=== PATIENT | female | born 1980 | race African-American/Black ===

== ENCOUNTER 2020-07-24 07:02 | Emergency (ER) | payer OTHER ==
[~2020-07-24] VITALS: Ht 157.5 cm; Wt 176.4 kg
[~2020-07-24 07:02] MED LIST: AMOXICILLI250 MG/51 PO; CIPROFLOXACIN500 M1 PO; HYCET 7.5 MG-3473 ML PO; PERCOCET PO; PROTONIX40 M3
[2020-07-24 07:44] LABS: BASOPHILS 0.9 % (0.0-2.0); HEMATOCRIT 35.9 % (37.0-47.0); HEMOGLOBIN 11.5 gm/dL (12.0-15.0); LYMPHOCYTES 34.5 % (24.0-44.0); MCH 26.4 pg (26.0-34.0); MCHC 31.9 g/dL (28.0-37.0); MCV 82.5 fL (80.0-100.0); MONOCYTES 7.2 % (1.0-8.0); PLATELET COUNT 482 thou/uL (150-400); POLYS 56.4 % (36.0-66.0); RBC 4.35 mil/uL (4.20-5.00); RDW 14.5 % (10.5-14.5); WBC 8.9 thou/uL (4.0-11.0)
[2020-07-24 07:48] LABS: URINE BILIRUBIN NEGATIVE (Negative); URINE BLOOD 3+ (Negative); URINE GLUCOSE-RANDOM* NEGATIVE (Negative); URINE KETONES NEGATIVE (Negative); URINE LEUKOCYTES-REFLEX NEGATIVE (Negative); URINE NITRITE-REFLEX NEGATIVE (Negative); URINE PROTEIN (DIPSTICK) TRACE (Negative); URINE SPECIFIC GRAVITY <= 1.005 (1.005-1.035); URINE UROBILINOGEN 0.2 E.U./dl (0.2-1.0)
[2020-07-24 07:51] LABS: URINE CLARITY HAZY; URINE COLOR LT RED
[2020-07-24 07:54] LABS: ANION GAP 7 mmol/L (7-16); BUN 9 mg/dL (7-18); CALCIUM 9.3 mg/dL (8.5-10.1); CHLORIDE 102 mmol/L (98-107); CO2 29 mmol/L (21-32); CREATININE 0.9 mg/dL (0.6-1.0); GLUCOSE 140 mg/dL (74-106); POTASSIUM 3.8 mmol/L (3.5-5.1); SODIUM 138 mmol/L (136-145)
[2020-07-24 07:55] LABS: CASTS None Seen /LPF (None Seen); SQUAMOUS 4-10 Moderate /LPF (0-3)
[2020-07-24 07:56] LABS: BACTERIA-REFLEX 1-9 Few /HPF (None Seen); CRYSTALS None Seen /LPF (None Seen); URINE RBC >20 Many /HPF (0-2); URINE WBC-REFLEX 0-5 Rare /HPF (0-5)
[2020-07-24 08:00] LABS: ALBUMIN 3.7 g/dL (3.4-5.0); AMYLASE 48 U/L (25-115); DIRECT BILIRUBIN < 0.1 mg/dL (<0.1-0.2); LIPASE 76 U/L (73-393); SGOT 13 U/L (15-37); SGPT 30 U/L (30-65); TOTAL BILIRUBIN 0.3 mg/dL (0.2-1.0); TOTAL PROTEIN 8.4 g/dL (6.4-8.2)
[2020-07-24] MEDS ORDERED: PYRIDIUM200 MG PO (09:34)
[2020-07-24] MEDS ORDERED: KEFLEX500 M1 PO (09:34)
[2020-07-24] MEDS ORDERED: ANUSOL-HC30 GM TOP (09:34)
[2020-07-24] MEDS ORDERED: ANUSOL-HC25 MG RECTAL (09:34)
[2020-07-24 09:38] VITALS: BP 124/72
== END 2020-07-24 09:40 | disposition home or self-care (01) ==
LOC: ER 07:02
PROVIDERS: Emergency Medicine
DX: D25.9 Leiomyoma of uterus, unspecified (principal); N30.90 Cystitis, unspecified without hematuria; N93.8 Other specified abnormal uterine and vaginal bleeding; K64.9 Unspecified hemorrhoids; Z79.2 Long term (current) use of antibiotics; Z79.899 Other long term (current) drug therapy

== ENCOUNTER 2020-11-24 01:01 | Emergency (ER) | payer OTHER ==
[~2020-11-24] VITALS: Ht 154.9 cm; Wt 182.0 kg
[~2020-11-24 01:01] MED LIST changes: +ANUSOL-HC25 MG RECTAL; +ANUSOL-HC30 GM TOP; +KEFLEX500 M1 PO; +PYRIDIUM200 MG PO
[2020-11-24 03:00] LABS: ABSOLUTE NEUTROPHILS 5.7 thou/uL (1.4-8.2); BASOPHILS 0.6 % (0.0-2.0); EOSINOPHILS 0.2 % (0.0-3.0); HEMATOCRIT 35.6 % (37.0-47.0); HEMOGLOBIN 11.3 gm/dL (12.0-15.0); LYMPHOCYTES 29.8 % (24.0-44.0); MCH 25.2 pg (26.0-34.0); MCHC 31.9 g/dL (28.0-37.0); MCV 79.1 fL (80.0-100.0); PLATELET COUNT 476 thou/uL (150-400); POLYS 61.4 % (36.0-66.0); RDW 14.8 % (10.5-14.5); WBC 9.3 thou/uL (4.0-11.0)
[2020-11-24 03:11] LABS: ANION GAP 11 mmol/L (7-16); BUN 10 mg/dL (7-18); CALCIUM 9.3 mg/dL (8.5-10.1); CHLORIDE 100 mmol/L (98-107); CO2 24 mmol/L (21-32); CREATININE 0.8 mg/dL (0.6-1.0); GLUCOSE 109 mg/dL (74-106); SODIUM 135 mmol/L (136-145)
[2020-11-24 03:21] LABS: ALBUMIN 3.6 g/dL (3.4-5.0); LIPASE 57 U/L (73-393); SGOT 40 U/L (15-37); SGPT 27 U/L (14-59); TOTAL BILIRUBIN 0.5 mg/dL (0.2-1.0); TOTAL PROTEIN 8.7 g/dL (6.4-8.2); TROPONIN-I <0.06 ng/mL (<0.06)
[2020-11-24] MEDS ORDERED: CHLORTHALIDONE25 MG PO (04:11)
[2020-11-24] MEDS ORDERED: METOPROLOL SUC100 MG PO (04:11)
[2020-11-24] MEDS ORDERED: LOSARTAN POTAS100 MG PO ×2 (04:12→07:45)
--- NOTE | 2020-11-24 07:13 | EKG ---
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 : 1980 Requested By: Drew Muir Order Number: [id number] MD: Alireza Olson Measurements Intervals [place] Rate: 106 P: 39 MO: 192 QRS: -10 QRSD: 93 T: 192 QT: 308 QTc: 409 Interpretive Statements Sinus tachycardia Probable left atrial enlargement LVH with secondary repolarization abnormality No previous ECG available for comparison Electronically Signed On 11-24-2020 7:13:24 CDT by Alireza Olson [email or web address] <ELECTRONICALLY SIGNED> By: Alireza Olson MD, [facility] 11/24/20 0713 [id number] Alireza Olson MD, FACC /EPI
[2020-11-24] MEDS ORDERED: TOPROL XL100 MG PO (07:45)
[2020-11-24 07:52] VITALS: BP 167/93
== END 2020-11-24 07:53 | disposition still patient (30) ==
LOC: ER 01:01
PROVIDERS: Emergency Medicine
DX: R07.89 Other chest pain (principal); Z79.899 Other long term (current) drug therapy; Z98.51 Tubal ligation status

== ENCOUNTER 2021-02-01 23:48 | Emergency (ER) | payer OTHER ==
[~2021-02-01] VITALS: Ht 154.9 cm; Wt 172.4 kg
[~2021-02-01 23:48] MED LIST changes: +CHLORTHALIDONE25 MG PO; +LOSARTAN POTAS100 MG PO; +METOPROLOL SUC100 MG PO; +TOPROL XL100 MG PO
[2021-02-02 00:36] LABS: URINE BILIRUBIN NEGATIVE (Negative); URINE BLOOD TRACE (Negative); URINE CLARITY CLEAR; URINE COLOR YELLOW; URINE GLUCOSE-RANDOM* NEGATIVE (Negative); URINE KETONES NEGATIVE (Negative); URINE LEUKOCYTES-REFLEX NEGATIVE (Negative); URINE NITRITE-REFLEX NEGATIVE (Negative); URINE PROTEIN (DIPSTICK) NEGATIVE (Negative); URINE SPECIFIC GRAVITY 1.015 (1.005-1.035); URINE UROBILINOGEN 0.2 E.U./dl (0.2-1.0)
[2021-02-02 00:51] LABS: HEMATOCRIT 36.5 % (37.0-47.0); HEMOGLOBIN 11.6 gm/dL (12.0-15.0); MCH 25.1 pg (26.0-34.0); MCHC 31.8 g/dL (28.0-37.0); MCV 78.9 fL (80.0-100.0); RBC 4.63 mil/uL (4.20-5.00); RDW 15.5 % (10.5-14.5); WBC 8.9 thou/uL (4.0-11.0)
[2021-02-02 01:09] LABS: CALCIUM 8.7 mg/dL (8.5-10.1); CREATININE 0.9 mg/dL (0.6-1.0); POTASSIUM 3.3 mmol/L (3.5-5.1)
[2021-02-02 01:15] LABS: ALBUMIN 3.6 g/dL (3.4-5.0); TOTAL BILIRUBIN 0.5 mg/dL (0.2-1.0); TOTAL PROTEIN 8.1 g/dL (6.4-8.2)
[2021-02-02] MEDS ORDERED: FLEXERIL PO (03:52)
[2021-02-02] MEDS ORDERED: LACTULOSE PO (03:52)
[2021-02-02] MEDS ORDERED: IBUPROFEN 800800 MG PO (03:52)
[2021-02-02 04:09] VITALS: BP 176/98
== END 2021-02-02 04:10 | disposition home or self-care (01) ==
LOC: ER 23:48
PROVIDERS: Emergency Medicine
DX: M54.89 Other dorsalgia (principal); Z20.822 Contact with and (suspected) exposure to COVID-19; I10 Essential (primary) hypertension; Z90.89 Acquired absence of other organs; Z79.899 Other long term (current) drug therapy